=== PATIENT | female | born 1955 | race Caucasian/White ===

== ENCOUNTER 2016-10-22 07:42 | Observation (INO) ==
[2016-10-22] MEDS ORDERED: Ondansetron ODT 4 MG TAB.RAPDIS SL ONE (08:10)
--- NOTE | 2016-10-22 08:11 | Emergency Department Note ---
Disposition Clinical Impression: Chest pain Qualifiers: Chest pain type: precordial pain Qualified Code(s): R07.2 - Precordial pain Vomiting Qualifiers: Vomiting type: unspecified Vomiting Intractability: non-intractable Nausea presence: with nausea Qualified Code(s): R11.2 - Nausea with vomiting, unspecified Disposition: Admitted As Inpatient Condition: Fair Referrals: Laurie Rodriguez, INFORMATION MANAGER [Primary Care Provider] - Forms: ED Satisfaction Letter Chest Pain HPI - General Chief Complaint: ED Nausea/Vomiting/Diarrhea Stated Complaint: Nausea, vomiting, SOB Time Seen by Provider: 10/22/16 08:00 Source: patient Mode of arrival: private vehicle Limitations: no limitations Vital Signs Reviewed: Yes Nursing Notes Reviewed: Yes - History of Present Illness HPI Narrative: Patient states that she started to "feel bad" yesterday evening. She states she had some shakes and question if she had a fever. She checked her temperature and it was 98. She developed chest pressure they would go to the left side of her neck. She relates that was worse with laying down and was not exertional. She also developed some nausea and vomiting and has had nothing significant to eat or drink since last night. She states she has tried to drink some fluids but has vomited. She does report shortness of breath and she broke out in a couple sweats. She also notes that she is having diffuse severe body aches and volunteers that she has been exposed to a granddaughter who was tested positive for influenza. She states also too great grandkids with the flu. She denies any abdominal pain, diarrhea, cough or coryza. She feels some generalized weakness and malaise. Pt complaint: chest pain Onset (ago): day(s) (1) Duration: constant Onset: during rest Pain Location: substernal Severity: moderate Severity scale (1-10): 8 Quality: other (Pressure) Pain Radiation: neck Improves with: other (Sitting) Worsens with: supine Associated symptoms: Reports: nausea, vomiting, diaphoresis, dyspnea. Denies: syncope, palpitations, fever, cough, leg swelling Treatments prior to arrival chest pain: none - Related Data Home Medications Medication Instructions Recorded Confirmed Clopidogrel [Plavix] 75 mg PO DAILY 05/22/15 05/22/15 Glimepiride 4 mg PO QAM 05/22/15 05/22/15 Linagliptin [Tradjenta] 5 mg PO QAM 05/22/15 05/22/15 Lisinopril 40 mg PO QAM 05/22/15 05/22/15 Metformin 1,000 mg PO BID 05/22/15 05/22/15 Metoprolol 40 mg PO QAM 05/22/15 05/22/15 Multivitamin/Iron/Folic Acid 1 each PO QAM 05/22/15 05/22/15 [Centrum Complete Multivit Tab] Niacinamide [Niacin] 1,500 mg PO QAM 05/22/15 05/22/15 Pravastatin Sodium 80 mg PO HS 05/22/15 05/22/15 Previous Rx's Medication Instructions Recorded Albuterol Sulfate [Albuterol 1 puff IH Q6HR PRN #1 inhaler 06/20/16 Inhaler] Azithromycin [Azithromycin 6-Tab 250 mg PO PER PKG DI #6 tab 06/20/16 Pack] PredniSONE 60 mg PO NOW 5 Days 06/20/16 Allergies Allergy/AdvReac Type Severity Reaction Status Date / Time hydroxyzine [From Vistaril] Allergy Difficulty Verified 05/22/15 10:52 Breathing All systems ED: reviewed and negative except as stated. 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 Absent: scleral icterus, conjunctival injection - ENT ENT exam: normal exam, normal oropharynx, mucous membranes moist - Neck Neck exam: Present: normal inspection, full ROM, trachea midline - Chest Chest inspection: Present: normal inspection, symmetric chest wall rise - Respiratory Respiratory exam: Present: normal lung sounds bilaterally. Absent: respiratory distress, wheezes, prolonged expiratory phase - Cardiovascular Cardiovascular exam: Present: regular rate, normal rhythm, normal heart sounds - Abdominal Exam Abdominal exam: Present: soft, Non-Tender, normal bowel sounds. Absent: tenderness, distention, guarding, rebound, rigidity - Extremities Exam Extremities exam: Present: normal inspection, full ROM, normal capillary refill. Absent: tenderness, pedal edema - Expanded Lower Extremity Exam Neurovascular/Tendon exam: Present: normal capillary refill. Absent: motor deficit, sensory deficit, tendon deficit Gait: observed and normal - Back Exam Back exam: Present: normal inspection, full ROM. Absent: tenderness, CVA tenderness (R), CVA tenderness (L) - Neurological Exam Neurological exam: Present: alert, oriented X3, normal gait - Psychiatric Psychiatric exam: Present: normal affect, anxious - Skin Skin exam: Present: warm, dry, intact, normal color. Absent: rash, diaphoresis , pallor Course Course Narrative: 0900: With return of lab, EKG and x-ray, there has been discussed with the patient and family. I feel likely prudent to have her in from duration serial troponins. She also did receive IV fluids for hydration and anti-emetics as needed. A page is been placed to Dr. Carrillo will coordinate further inpatient evaluation. Vital Signs Temperature 99.0 F 10/22/16 07:45 Pulse Rate 98 10/22/16 07:45 Respiratory Rate 20 10/22/16 07:45 Blood Pressure 133/74 10/22/16 07:45 O2 Sat by Pulse Oximetry 98 10/22/16 07:45 Temperature 99.0 F 10/22/16 07:45 Pulse Rate 74 10/22/16 08:26 Respiratory Rate 22 10/22/16 08:26 Blood Pressure 140/74 10/22/16 08:26 O2 Sat by Pulse Oximetry 95 10/22/16 08:26 Oxygen Delivery Oxygen Delivery Room Air Chest Pain - Differential Diagnosis Likely: atypical chest pain, chest pain - Medical Records Medical records reviewed: Yes I reviewed the patient's medical records. - Lab Data Lab results reviewed: Yes I reviewed the patient's lab results. Lab results narrative: Influenza A and B are negative Result diagrams: 10/22/16 08:21 10/22/16 08:21 Lab Results 10/22/16 10/22/16 10/22/16 Range/Units 08:21 08:21 08:21 WBC 8.5 (4.3-11.1) K/mcL RBC 4.40 (3.82-4.97) M/mcL Hgb 12.2 (11.5-15.4) g/dL Hct 36.6 (35.3-44.9) % MCV 83.2 (83.0-100.0) fL MCH 27.7 L (28.0-33.3) pg MCHC 33.3 (31.6-35.5) g/dL RDW 12.6 (11.5-14.5) % Plt Count 199 (140-400) K/mcL MPV 10.3 (9.4-12.4) fL Immature Gran % 0.7 (0-4) % Seg Neutrophils % 74.3 % Lymphocytes % 16.5 % Monocytes % 7.8 % Eosinophils % 0.1 % Basophils % 0.6 % Neutrophils # 6.3 (1.6-8.9) K/mcL Lymphocytes # 1.4 (0.6-4.6) K/mcL Monocytes # 0.7 (0.0-1.3) K/mcL Eosinophils # 0.0 (0.0-0.6) K/mcL Basophils # 0.1 (0.0-0.2) K/mcL Sodium 138 (136-145) mEq/L Potassium 3.8 (3.5-4.5) mEq/L Chloride 100 (98-109) mEq/L Carbon Dioxide 26 (19-29) mEq/L BUN 13 (7-20) mg/dL Creatinine 0.87 (0.57-1.11) mg/dL Est GFR ( Amer) > 60 (> 60) Est GFR (Non-Af Amer) > 60 (> 60) BUN/Creatinine Ratio 15 (6-26) Glucose 174 H (70-99) mg/dL Calculated Osmolality 290 (280-300) Calcium 9.3 (8.6-10.8) mg/dL Total Bilirubin 1.0 (0.2-1.2) mg/dL Direct Bilirubin 0.3 (0.0-0.5) mg/dL Indirect Bilirubin 0.7 (0.0-1.2) mg/dL AST 15 (5-34) Units/L ALT 26 (0-55) Units/L Alkaline Phosphatase 47 (38-126) Units/L Troponin I 0.00 (0-0.03) ng/mL B-Natriuretic Peptide (0-100) pg/mL Serum Total Protein 7.2 (6.0-8.3) g/dL Albumin 3.9 (3.5-5.0) g/dL Globulin 3.3 (2.4-3.5) g/dL Albumin/Globulin Ratio 1.2 (1.1-2.2) Amylase 36 (25-125) Units/L Lipase 24 (8-78) Units/L 03// Range/Units 08:30 WBC (4.3-11.1) K/mcL RBC (3.82-4.97) M/mcL Hgb (11.5-15.4) g/dL Hct (35.3-44.9) % MCV (83.0-100.0) fL MCH (28.0-33.3) pg MCHC (31.6-35.5) g/dL RDW (11.5-14.5) % Plt Count (140-400) K/mcL MPV (9.4-12.4) fL Immature Gran % (0-4) % Seg Neutrophils % % Lymphocytes % % Monocytes % % Eosinophils % % Basophils % % Neutrophils # (1.6-8.9) K/mcL Lymphocytes # (0.6-4.6) K/mcL Monocytes # (0.0-1.3) K/mcL Eosinophils # (0.0-0.6) K/mcL Basophils # (0.0-0.2) K/mcL Sodium (136-145) mEq/L Potassium (3.5-4.5) mEq/L Chloride (98-109) mEq/L Carbon Dioxide (19-29) mEq/L BUN (7-20) mg/dL Creatinine (0.57-1.11) mg/dL Est GFR ( Amer) (> 60) Est GFR (Non-Af Amer) (> 60) BUN/Creatinine Ratio (6-26) Glucose (70-99) mg/dL Calculated Osmolality (280-300) Calcium (8.6-10.8) mg/dL Total Bilirubin (0.2-1.2) mg/dL Direct Bilirubin (0.0-0.5) mg/dL Indirect Bilirubin (0.0-1.2) mg/dL AST (5-34) Units/L ALT (0-55) Units/L Alkaline Phosphatase (38-126) Units/L Troponin I (0-0.03) ng/mL B-Natriuretic Peptide 38 (0-100) pg/mL Serum Total Protein (6.0-8.3) g/dL Albumin (3.5-5.0) g/dL Globulin (2.4-3.5) g/dL Albumin/Globulin Ratio (1.1-2.2) Amylase (25-125) Units/L Lipase (8-78) Units/L - Radiology Data Radiology results reviewed: Yes I reviewed the patient's radiology results. Single view chest x-ray is performed. This does not demonstrate evidence for infiltrate, effusion, pneumothorax, foreign body or heart failure. The cardiac silhouette is normal. I do not see abnormality to the osseous structures of the chest. This is on my interpretation. Impressions Chest X-Ray 10/22/16 08:10 IMPRESSION: No acute cardiopulmonary abnormality. D/ / Jose Angel Pink MD / Jose Angel Pink MD Interpreting Provider: Jose Angel Pink MD - EKG Data EKG attestation: Yes I reviewed and interpreted this EKG. EKG shows normal: sinus rhythm, axis, intervals, QRS complexes, ST-T waves Rate: tachycardia (102) Rhythm: PVC's Interpretation: no acute changes Heart Score - Score History: Moderately Suspicious EKG: Non Specific repolarisation Disturbance Age: 45-65 Risk Factors: Equal/Greater than 3 risk factor or history of atherosclerotic disease Troponin: Less than normal limit HEART Score Total: 5
[2016-10-22 08:33] LABS: Basophils # 0.1 K/mcL (0.0-0.2); Basophils % 0.6 %; Eosinophils % 0.1 %; Hematocrit 36.6 % (35.3-44.9); Hemoglobin 12.2 g/dL (11.5-15.4); Immature Granulocytes % 0.7 % (0-4); Lymphocytes # 1.4 K/mcL (0.6-4.6); Lymphocytes % 16.5 %; Mean Corpuscular HGB Conc 33.3 g/dL (31.6-35.5); Mean Corpuscular Hemoglobin 27.7 pg (28.0-33.3); Mean Corpuscular Volume 83.2 fL (83.0-100.0); Mean Platelet Volume 10.3 fL (9.4-12.4); Monocytes # 0.7 K/mcL (0.0-1.3); Monocytes % 7.8 %; Neutrophils # 6.3 K/mcL (1.6-8.9); Platelet Count 199 K/mcL (140-400); Red Cell Distribution Width 12.6 % (11.5-14.5); Segmented Neutrophils % 74.3 %
[2016-10-22 08:49] LABS: Alanine Aminotransferase 26 Units/L (0-55); Albumin 3.9 g/dL (3.5-5.0); Albumin/Globulin Ratio 1.2 (1.1-2.2); Alkaline Phosphatase 47 Units/L (38-126); Amylase 36 Units/L (25-125); Aspartate Amino Transferase 15 Units/L (5-34); BUN/Creatinine Ratio 15 (6-26); Bilirubin,Direct 0.3 mg/dL (0.0-0.5); Bilirubin,Indirect 0.7 mg/dL (0.0-1.2); Blood Urea Nitrogen 13 mg/dL (7-20); Calcium 9.3 mg/dL (8.6-10.8); Carbon Dioxide 26 mEq/L (19-29); Chloride 100 mEq/L (98-109); Globulin 3.3 g/dL (2.4-3.5); Glucose 174 mg/dL (70-99); Lipase 24 Units/L (8-78); Osmolality,Calculated 290 (280-300); Potassium 3.8 mEq/L (3.5-4.5); Sodium 138 mEq/L (136-145); Total Protein 7.2 g/dL (6.0-8.3); eGFR For African Americans > 60 (> 60); eGFR For Non-African Americans > 60 (> 60)
[2016-10-22] MEDS ORDERED: Aspirin 325 MG TABLET PO ONE (09:00)
[2016-10-22] MEDS ORDERED: 0.9 % Sodium Chloride 1,000 ML IVC SCH ×2 (09:00→10:58)
[2016-10-22] MEDS ORDERED: MOM Conc 10 ML UD.LIQ PO PRN (10:58)
[2016-10-22] MEDS ORDERED: Dextrose Gel 15 GM PO PRN ×2 (10:58)
[2016-10-22] MEDS ORDERED: Naloxone 0.4 MG/ML INJ IVP PRN (10:58)
[2016-10-22] MEDS ORDERED: Ondansetron 4 MG/2 ML VIAL IVP PRN (10:58)
[2016-10-22] MEDS ORDERED: *HR* Dextrose 50 % in Water (Syg) 50 ML SYRINGE IVP PRN (10:58)
[2016-10-22] MEDS ORDERED: D5% in Water 1,000 ML IV PRN (10:58)
--- NOTE | 2016-10-22 12:42 | Internal Med History&Physical ---
Date of Encounter: 10/22/16 Time of Encounter: 12:15 Assessment and Plan (1) Chest pain Current visit: Yes Status: Acute Will order d-dimer. Initial troponin was 0.00. Doubt myocardial ischemic origin. Qualifiers: Chest pain type: precordial pain Qualified Code(s): R07.2 - Precordial pain (2) DM type 2 (diabetes mellitus, type 2) Current visit: Yes Status: Chronic Continue glimepiride. Will order Accu-Cheks with SSI. 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 Qualifiers: Hypertension type: essential hypertension Qualified Code(s): I10 - Essential (primary) hypertension Internal Medicine - H&P: HPI Chief complaint: Chest pressure and dyspnea Admitted From: Home Plans for Post Hospital Care: Home History of present illness: Ms. Carlos is a 61 year old female who came to the emergency room stating she had onset of shaking and sensation of fever approximately 9:30 PM the evening of October 21. She had dyspnea but no significant cough. She had nausea but no significant vomiting. She took an aspirin with minimal relief. She developed some mild pressure in her chest that seemed to worsen as the hours passed. When she did not improve she decided to come to emergency room. She was evaluated and admitted to [facility] floor for ongoing care needs. She states her discomfort from the pressure was a 9/10 level when she came to emergency but has improved to 2-3/10 at present. She has had previous similar discomfort in her chest recently when she gets in stressful situations. She reports she has been under stress recently with her 18-year-old child. Her cardiovascular history is significant for hypertension but she does not check blood pressures at home. An echocardiogram done 06/01/2013 showed LVEF of 65-70 % with mild LV diastolic dysfunction reported. She thinks she had exercise stress test performed 2007 and heart catheter approximately 2010. No further intervention was recommended. She denies DVT or pulmonary embolus or unusual leg swelling. Past Med Surg Social Fam HX - Past Medical History Medical history: arthritis, CHF, COPD, diabetes, hyperlipidemia, hypertension, myocardial infarction Psychiatric history: no psych history - Past Surgical History Surgical History: cholecystectomy - Social History Smoking Status: Former smoker Smokeless Tobacco Status: No Alcohol use: none Drug use: none - Family History Sister Adopted: No Family Member Ethnicity: Non- Living Status: Still Living Hx Family Cardiac Disorders: No (Mom - anursym Dad - heart attack) Hx Family Respiratory Disorders: No Hx Family Cancer: Yes (breast cancer - sister) Hx Family GI Disorders: No Hx Family Endocrine Disorder: No Hx Family Neuromuscular Disorders: No Hx Family Neurologic Disorders: No Hx Family HEENT Disorders: No Hx Family Autoimmune Disorders: No Internal Medicine - H&P: Meds Clopidogrel [Plavix] 75 mg PO DAILY 05/22/15 [History] Glimepiride 4 mg PO BID 05/22/15 [History] Lisinopril 40 mg PO QAM 05/22/15 [History] Metformin 1,000 mg PO BID 05/22/15 [History] Metoprolol 40 mg PO QAM 05/22/15 [History] Multivitamin/Iron/Folic Acid [Centrum Complete Multivit Tab] 1 each PO QAM 05/22 [History] Niacinamide [Niacin] 1,500 mg PO QAM 05/22/15 [History] Pravastatin Sodium 80 mg PO HS 05/22/15 [History] Albuterol Sulfate [Albuterol Inhaler] 1 puff IH Q6HR PRN #1 inhaler 06/20/16 [Rx ] Atorvastatin [Lipitor] 20 mg PO HS 10/22/16 [History] Allergies hydroxyzine [From Vistaril] Allergy (Verified 05/22/15 10:52) Difficulty Breathing All Systems PM: A 10-system review of systems was performed and is negative for pertinent findings except as documented above in the HPI. Review of systems: Gen.: Her weight is decreased from 87.543 kg at the May 2015 [facility] hospitalization to 84.425 kg at present. Cardiovascular: As per history of present illness Respiratory: She smoked age [age] never up to 1 pack per day. She claims she had PFTs approximately 2008 and was told she had COPD. She does not wear home oxygen. GI: She has had cholecystectomy in the past. She denies disorders of her liver or exocrine pancreas : She denies hematuria dysuria or kidney stones Neurologic: She claims she has had "mini strokes". These have not left her with any permanent neurologic deficit. She denies large distribution strokes or seizures Endocrine: She was diagnosed with DM 2 approximately age 42. She has hyperlipidemia but denies known thyroid disease Hematology/oncology: She has history of anemia and uses OTC iron pills. She denies internal malignancies Psychiatric: She has history of depression. She feels anxiety at times. She denies other mental health issues Musk skeletal: She denies arthritis gout or osteoporosis. - Constitutional Vitals: Temp Pulse Resp BP Pulse Ox 98.6 F 92 18 126/76 95 10/22/16 10:58 10/22/16 10:58 10/22/16 10:58 10/22/16 10:58 10/22/16 10:58 Exam: Gen.: She is a well developed well-nourished female lying quietly in bed who appears in no acute distress. HEENT: Head is atraumatic and normocephalic. Eyes: EOMI. There is no scleral icterus. Mouth: Mucosa is moist. Neck: Supple and nontender. There is no thyromegaly or adenopathy noted. Heart: Regular without murmurs gallops or ectopics Lungs: No wheezes or crackles are heard. Chest: She is nontender in the chest wall to palpation Abdomen: Soft and nontender. No masses or guarding are noted. Extremities: There is no cyanosis edema or clubbing noted. Dorsalis pedis and posterior tibial pulses are 1-2 over 2 bilaterally. Neurologic: Mental status: She is talkative and a good historian. Cranial nerves: Smile is symmetric. Forehead wrinkles bilaterally. Tongue protrudes midline. EOMI. Motor: There is no pronator drift. Cerebellar: Finger to nose is intact bilaterally. Skin: Warm and dry Internal Med - H&P Results - Labs CBC & Chem 7: 10/22/16 08:21 10/22/16 08:21 Labs: Cardiac Enzymes 10/22/16 Range/Units 11:38 Troponin I 0.00 (0-0.03) ng/mL
--- NOTE | 2016-10-22 15:50 | Electrocardiograph Report ---
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
[2016-10-22] MEDS: Acetaminophen 325 MG TABLET PO PRN (15:59)
[2016-10-22] MEDS: *HR* Metformin 500 MG TABLET PO SCH (16:29)
[2016-10-22] MEDS: *HR* Glimepiride 2 MG TABLET PO SCH (16:30)
[2016-10-23] MEDS: Acetaminophen 325 MG TABLET PO PRN (04:52)
[2016-10-23 04:54] LABS: Basophils % 0.6 %; Eosinophils # 0.1 K/mcL (0.0-0.6); Eosinophils % 1.5 %; Hemoglobin 11.7 g/dL (11.5-15.4); Immature Granulocytes % 0.3 % (0-4); Lymphocytes # 2.5 K/mcL (0.6-4.6); Lymphocytes % 38.2 %; Mean Corpuscular HGB Conc 33.4 g/dL (31.6-35.5); Mean Corpuscular Hemoglobin 28.2 pg (28.0-33.3); Mean Corpuscular Volume 84.3 fL (83.0-100.0); Mean Platelet Volume 10.3 fL (9.4-12.4); Monocytes # 0.7 K/mcL (0.0-1.3); Monocytes % 10.2 %; Neutrophils # 3.3 K/mcL (1.6-8.9); Platelet Count 185 K/mcL (140-400); Red Blood Count 4.15 M/mcL (3.82-4.97); Red Cell Distribution Width 12.8 % (11.5-14.5); Segmented Neutrophils % 49.2 %
[2016-10-23 06:47] VITALS: BP 117/63
[2016-10-23] MEDS ORDERED: Lisinopril 20 MG TABLET PO SCH (09:00)
[2016-10-23] MEDS: *HR* Glimepiride 2 MG TABLET PO SCH (09:49)
[2016-10-23] MEDS: *HR* Metformin 500 MG TABLET PO SCH (09:49)
--- NOTE | 2016-10-23 10:28 | Discharge Summary ---
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 Qualified Code(s): E11.9 - Type 2 diabetes mellitus without complications (3) Hypertension Priority: Secondary Status: Chronic Qualifiers: Hypertension type: essential hypertension Qualified Code(s): I10 - Essential (primary) hypertension - Discharge Medications Home Medications: Clopidogrel [Plavix] 75 mg PO DAILY 05/22/15 [History] Glimepiride 4 mg PO BID 05/22/15 [History] Lisinopril 40 mg PO QAM 05/22/15 [History] Metformin 1,000 mg PO BID 05/22/15 [History] Metoprolol 50 mg PO BID 05/22/15 [History] Multivitamin/Iron/Folic Acid [Centrum Complete Multivit Tab] 1 each PO QAM 05/22 [History] Niacinamide [Niacin] 1,500 mg PO QAM 05/22/15 [History] Albuterol Sulfate [Albuterol Inhaler] 1 puff IH Q6HR PRN #1 inhaler 06/20/16 [Rx ] Atorvastatin [Lipitor] 40 mg PO HS 10/22/16 [History] Allergies/Adverse Reactions: Allergies hydroxyzine [From Vistaril] Allergy (Verified 05/22/15 10:52) Difficulty Breathing Date of admission: 10/22/16 09:10 Primary care physician: Ny Westfall CNP - Patient Status Disposition: Home, Self-Care Condition: Fair Overall status at discharge: patient is progressing back to baseline - Discharge Instructions Follow Up With: Ny Westfall CNP [Advanced Practice Nurse] - 1 week - Diet and Activity Activity: resume usual activities as tolerated Diet: advance to your usual diet Hospital course: Ms. Carlos is a 61 year old female who came to the emergency room stating she had onset of shaking and sensation of fever approximately 9:30 PM the evening of October 21. She had dyspnea but no significant cough. She had nausea but no significant vomiting. She took an aspirin with minimal relief. She developed some mild pressure in her chest that seemed to worsen as the hours passed. When she did not improve she decided to come to emergency room. She was evaluated and admitted to [facility] for ongoing care needs. Initial orders were written by the emergency room physician. I saw her on October 22 and performed a history and physical. Repeat cardiac enzymes showed no evidence of myocardial damage. When I saw her I did not think the pain was likely to be of myocardial ischemic origin. The etiology of the pain was not determined with certainty. The chest discomfort had significantly lessened when I saw her on October 23 and she felt stable for discharge home which I felt was reasonable. She will follow with her PCP Ny Westfall CNP within 1 week. - Time Spent with Patient Total time spent providing and/or coordinating discharge services: - Constitutional Vitals: Temp Pulse Resp BP Pulse Ox 97.3 F L 71 18 117/63 97 10/23/16 06:28 10/23/16 06:28 10/23/16 06:28 10/23/16 06:28 10/23/16 06:28
== END 2016-10-23 11:50 | disposition home or self-care (01) ==
LOC: EMEROOPIK 07:42 → INPPIK 07:42
PROVIDERS: ADMIT Internal Medicine; ATTEND Internal Medicine